=== PATIENT | male | born 1970 | race Caucasian/White ===

== ENCOUNTER 2019-04-24 13:49 | Emergency (ER) | payer SELFPAY ==
--- NOTE | 2019-04-24 14:39 | ERPHSYRPT ---
- History of Present Illness Time Seen by Provider: 04/24/19 14:05 Source: patient Exam Limitations: no limitations Patient Subjective Stated Complaint: Pt states "I tripped over a suitcase and hurt my leg." Triage Nursing Assessment: Pt presented alert and oriented X 3, skin pwd Pt ambulates with an upright steady gait, able to sepak in clear full sentences. pt has approxc 7 cm X 1 and 1/2 cm Physician History: ppatient presents after tripping over a suitcase approximately 12 hours prior to arrival suffering a laceration to the anterior right leg. he is not diabetic he complains of no other injury.tetanus is current Timing/Duration: today, hour(s) (12) Quality: painful Severity: mild Location: extremities (right anterior leg) Allergies/Adverse Reactions: No Known Drug Allergies Allergy (Unverified 04/24/19 14:06) Home Medications: Furosemide 40 mg PO DAILY 04/24/19 [History] Hydrocodone/Acetaminophen [Hydrocodone-Acetamin 10-325 mg] 1 tab PO DAILY [History] Metoprolol Tartrate 50 mg [Lopressor 50 MG] 50 mg PO DAILY 04/24/19 [ History] Hx Tetanus, Diphtheria Vaccination/Date Given: Yes Hx Influenza Vaccination/Date Given: No Hx Pneumococcal Vaccination/Date Given: No Immunizations Up to Date: Yes - Review of Systems Constitutional: No Fever, No Chills Eyes: No Symptoms Ears, Nose, & Throat: No Symptoms Respiratory: No Cough, No Dyspnea Cardiac: No Chest Pain, No Edema, No Syncope Abdominal/Gastrointestinal: No Abdominal Pain, No Nausea, No Vomiting, No Diarrhea Genitourinary Symptoms: No Dysuria Musculoskeletal: No Back Pain, No Neck Pain Skin: No Rash Neurological: No Dizziness, No Focal Weakness, No Sensory Changes Psychological: No Symptoms Endocrine: No Symptoms All Other Systems: Reviewed and Negative - Past Medical History Pertinent Past Medical History: Yes Cardiac History: Hypertension Other Medical History: chronic back pain - Past Surgical History Past Surgical History: No - Social History Smoking Status: Current every day smoker How long have you smoked: years Exposure to second hand smoke: Yes Drug Use: none Patient Lives Alone: Yes - Nursing Vital Signs Nursing Vital Signs: Initial Vital Signs Temperature 97.9 F 04/24/19 14:01 Pulse Rate 100 H 04/24/19 14:01 Respiratory Rate 22 04/24/19 14:01 Blood Pressure 145/96 04/24/19 14:01 O2 Sat by Pulse Oximetry 97 04/24/19 14:01 Pain Scale Pain Intensity 5 - Physical Exam General Appearance: no apparent distress, alert Eye Exam: PERRL/EOMI, eyes nml inspection Ears, Nose, Throat Exam: normal ENT inspection, pharynx normal, moist mucous membranes Neck Exam: normal inspection, non-tender, supple, full range of motion Respiratory Exam: normal breath sounds, lungs clear, No respiratory distress Cardiovascular Exam: regular rate/rhythm, normal heart sounds Gastrointestinal/Abdomen Exam: soft, mass, No tenderness Back Exam: normal inspection, normal range of motion, No CVA tenderness, No vertebral tenderness Extremity Exam: normal range of motion, lacerations (110 cm laceration distal third of the leg transverse anterior) Neurologic Exam: alert, oriented x 3, cooperative, normal mood/affect, sensation nml, No motor deficits Skin Exam: normal color, warm, dry SpO2: 97 Procedures - Laceration/Wound Repair Right Lower Anterior Calf Wound Location: Right, lower leg Wound Length (cm): 10 Wound's Depth, Shape: linear, into subcut Wound Explored: no foreign body noted Irrigated: Yes Hibiclens Prep: Yes Anesthesia: 1% Lidocaine Volume Anesthetic (ccs): 20 Wound Debrided: minimal Wound Repaired With: sutures Suture Size/Type: 3-0, nylon Number of Sutures: 4 Layer Closure?: No - Course Nursing assessment & vital signs reviewed: Yes - Progress Progress: improved - Departure Departure Disposition: Home Clinical Impression: Laceration of right leg excluding thigh Condition: Stable Critical Care Time: No Additional Instructions: sutures out in 14 days watch for infection
[2019-04-24 14:52] VITALS: BP 138/90; PULSE 88; O2SAT 98
== END 2019-04-24 14:51 | disposition home or self-care (01) ==
LOC: ED 13:49
DX: S81.811A Laceration without foreign body, right lower leg, initial encounter (principal); W01.198A Fall on same level from slipping, tripping and stumbling with subsequent striking against other object, initial encounter
CPT/HCPCS: 12004; 99283